=== PATIENT | male | born 2000 | race African-American/Black ===

== ENCOUNTER 2020-09-21 05:12 | Emergency (ER) | payer SELFPAY ==
[2020-09-21] MEDS ORDERED: Ondansetron 4 MG/2 ML SDV IVPUSH ONE (05:35)
[2020-09-21] MEDS ORDERED: Dextrose 5%-0.9% NaCl 1,000 ML IV STA (05:37)
[2020-09-21] MEDS ORDERED: diphenhydrAMINE 50 MG/ML SDV IVPUSH ONE (05:53)
[2020-09-21] MEDS ORDERED: Haloperidol Lactate 5 MG/ML SDV IM ONE (05:54)
[2020-09-21 06:14] LABS: BLOOD UREA NITROGEN,BUN 20 mg/dL (7.0-18.0); CARBON DIOXIDE,CO2 21.4 mmol/L (21.0-32.0); CHLORIDE,CL 102 mmol/L (98-107); GLUCOSE RANDOM 143 mg/dL (74-106); POTASSIUM,K 4.5 mmol/L (3.5-5.1); SODIUM,NA 135 mmol/L (136-148)
--- NOTE | 2020-09-21 06:23 | EDM.PDOC ---
<Fuentes Neal - Last Filed: 09/21/20 06:57> ED HPI GENERAL MEDICAL PROBLEM - General Chief Complaint: Gastrointestinal Problem Stated Complaint: VOMITING Time Seen by Provider: 09/21/20 05:30 - History of Present Illness INITIAL COMMENTS - FREE TEXT/NARRATIVE: CHIEF COMPLAINT(S): Vomiting HISTORY OF PRESENT ILLNESS: This is a 20-year-old man with a past medical history of daily marijuana use otherwise no past medical history who comes to the emergency department with a chief complaint of vomiting. The patient states that for the last 1 day he has been experiencing nonbloody nonbilious vomiting with minimal abdominal pain. He denies any diarrhea, fever, chills, chest pain, shortness of breath. He denies any diarrhea, melena, or hematochezia. He states that he noticed that when he was in a hot shower that it improved his symptoms. He has not yet tried anything for the nausea. He states is not unable to tolerate any fluids by mouth. REVIEW OF SYSTEMS: Constitutional: Denies fever, chills. Eyes: Denies eye pain Ears, Nose, Mouth, & Throat: Denies earache Cardiovascular: Denies chest pain Respiratory: Denies shortness of breath Gastrointestinal: Positive for vomiting. Denies abdominal pain, diarrhea, hematochezia, hematemesis, bilious emesis Genitourinary: Denies hematuria Skin:Denies a rash MSK: Denies joint pain Neurological: Denies blurred vision Psychiatric: Denies depression PAST MEDICAL HISTORY: As per history of present illness and as reviewed below otherwise noncontributory. SURGICAL HISTORY: As per history of present illness and as reviewed below otherw ise noncontributory. SOCIAL HISTORY: As per history of present illness and as reviewed below otherwise noncontributory. FAMILY HISTORY: As per history of present illness and as reviewed below otherw ise noncontributory. EXAMINATION OF ORGAN SYSTEMS/BODY AREAS: Constitutional: Blood pressure is 129/66, heart rate 80, respiratory 16 with an oxygen saturation 97% on room air. Temperature 35.9 General: Overall well-appearing man who is in no acute distress Psychiatric: Appropriate mood and affect. Eyes: No scleral icterus or conjunctival erythema conjunctival injection bilaterally. ENMT: Dry mucous membranes/[place]. No pharyngeal erythema Cardiovascular: Regular, rate, and rhythm. No gallops, murmurs, or rubs. Bilateral upper extremity pulses symmetric and intact. No peripheral edema. No JVD. Respiratory: Lungs clear to auscultation bilaterally. No wheezes, rales, or rhonchi. Gastrointestinal: Soft, mild tenderness in the epigastric region. Nondistended. No rebound or guarding. Normoactive bowel sounds Genitourinary: No suprapubic tenderness Musculoskeletal: Normal range of motion. Skin: No lesions or abrasions. Neurological: Alert, GCS 15 MEDICAL DECISION MAKING AND COURSE IN THE ED WITH INTERPRETATION/REVIEW OF DIAGNOSTIC STUDIES: This is a 20-year-old man and with a past medical history of marijuana use disorder who comes to the emergency department with vomiting with minimal epigastric tenderness who has normal vital signs. At this time I do believe this is likely secondary to his marijuana use however given the epigastric tenderness we will obtain screening laboratory analysis. We will provide the patient with Haldol, Benadryl, and Zofran. This is for pain and nausea control. Differential includes pancreatitis. I do not believe any imaging is indicated at this time. We will reevaluate the patient. Laboratory: CBC reveals a mild leukocytosis of 12.79 with neutrophilic predominance with no left shift. Otherwise unremarkable. CMP reveals hyponatremia at 135, mildly elevated BUN at 20, hyperglycemia at 143 otherwise unremarkable. Qpskh-rb-tgus glucose was 125. On reevaluation, had just finished IV fluids at sign out and had not yet tried to drink fluids. DISPOSITION: The patient was signed out to Dr. Mercado pending reevaluation for PO toleration CONDITION: Fair PROCEDURES: None FINAL IMPRESSION(S)/DIAGNOSES: 1. Acute hyperemesis likely secondary to marijuana use Fuentes Neal M.D. - Related Data Allergies Allergy/AdvReac Type Severity Reaction Status Date / Time No Known Allergies Allergy Verified 09/21/20 05:31 Home Meds: Home Meds . [No Known Home Meds] 09/21/20 [History] Past Medical History - Past Health History Medical/Surgical History: Denies Medical/Surgical History Social & Family History - Recreational Drug Use Recreational Drug Use: No ED ROS GENERAL - Review of Systems Review Of Systems: See Below ED EXAM, GENERAL - Physical Exam Exam: See Below Departure - Departure Disposition: Home, Self-Care 01 Condition: Fair Clinical Impression: Cannabis hyperemesis syndrome concurrent with and due to cannabis abuse - Discharge Information *PRESCRIPTION DRUG MONITORING PROGRAM REVIEWED*: No *COPY OF PRESCRIPTION DRUG MONITORING REPORT IN PATIENT CHIKA: No Instructions: Cyclic Vomiting Syndrome, Adult, Cannabinoid Hyperemesis Syndrome Referrals: PCP,None [Primary Care Provider] - Forms: ED Department Discharge Additional Instructions: You evaluate today on emergent basis. At this time I do believe your vomiting is secondary to marijuana use. I do recommend you decrease use of marijuana. Please continue to maintain adequate fluid hydration. If you have any new or worsening symptoms please return to the emergency department. Otherwise follow- up with your primary care physician within 1 week [facility] [address] [place] [id number] [id number] The patient is informed of any results of their evaluation and diagnostic workup and all questions are answered. They are given discharge instructions and return precautions. The patient is stable for discharge. The patient states they understand and agree with the plan and that they will return if their symptoms get worse or if they have any new concerns. The following information is given to patients seen in the emergency department who are being discharged to home. This information is to outline your options for follow-up care. We provide all patients seen in our emergency department with a follow-up referral. The need for follow-up, as well as the timing and circumstances, are variable depending upon the specifics of your emergency department visit. If you don't have a primary care physician on staff, we will provide you with a referral. We always advise you to contact your personal physician following an emergency department visit to inform them of the circumstance of the visit and for follow-up with them and/or the need for any referrals to a consulting specialist. The emergency department will also refer you to a specialist when appropriate. This referral assures that you have the opportunity for follow-up care with a specialist. All of these measure are taken in an effort to provide you with optimal care, which includes your follow-up. Under all circumstances we always encourage you to contact your private physician who remains a resource for coordinating your care. When calling for follow-up care, please make the office aware that this follow-up is from your recent emergency room visit. If for any reason you are refused follow-up, please contact the [facility] Emergency Department at and asked to speak to the emergency department charge nurse. Sepsis Event Note (ED) - Evaluation Sepsis Screening Result: No Definite Risk <Cesar Mercado - Last Filed: 09/21/20 07:31> Course - Vital Signs Text/Narrative:: The patient was signed out to me by my partner at 7:00. This was the end of his shift. The patient is tolerating p.o. but only scant amounts at this time. It was felt that the patient needs to tolerate p.o. fluids better before discharge and there might be additional medications warranted. 7:30 AM the patient is tolerating p.o. and has a girlfriend is going to take him home to rest it off. Instruction was understood. Patient is discharged in satisfactory condition. Last Recorded V/S: Last Vital Signs Temp 35.9 C L 09/21/20 05:28 Pulse 80 09/21/20 05:28 Resp 16 09/21/20 05:28 BP 129/66 09/21/20 05:28 Pulse Ox 97 09/21/20 05:28 - Orders/Labs/Meds Orders: Active Orders 24 hr Category Date Time Status Blood Glucose Check, Bedside [RC] ONETIME Care 09/21/20 05:19 Active Labs: Laboratory Tests 09/21/20 09/21/20 09/21/20 Range/Units 05:25 05:35 05:35 WBC 12.79 H (4.0-11.0) K/uL RBC 5.47 (4.50-5.90) M/uL Hgb 16.8 (13.0-17.0) g/dL Hct 48.8 (38.0-50.0) % MCV 89.2 (80.0-98.0) fL MCH 30.7 (27.0-32.0) pg MCHC 34.4 (31.0-37.0) g/dL RDW Std Deviation 39.9 (28.0-62.0) fl RDW Coeff of Edgard 12 (11.0-15.0) % Plt Count 281 (150-400) K/uL MPV 10.10 (7.40-12.00) fL Neut % (Auto) 86.8 H (48.0-80.0) % Lymph % (Auto) 7.3 L (16.0-40.0) % [place] % (Auto) 5.6 (0.0-15.0) % Eos % (Auto) 0.2 (0.0-7.0) % Baso % (Auto) 0.1 (0.0-1.5) % Neut # (Auto) 11.1 H (1.4-5.7) K/uL Lymph # (Auto) 0.9 (0.6-2.4) K/uL [place] # (Auto) 0.7 (0.0-0.8) K/uL Eos # (Auto) 0.0 (0.0-0.7) K/uL Baso # (Auto) 0.0 (0.0-0.1) K/uL Nucleated RBC % 0.0 /100WBC Nucleated RBCs # 0 K/uL Sodium 135 L (136-148) mmol/L Potassium 4.5 (3.5-5.1) mmol/L Chloride 102 (98-107) mmol/L Carbon Dioxide 21.4 (21.0-32.0) mmol/L BUN 20 H (7.0-18.0) mg/dL Creatinine 1.0 (0.8-1.3) mg/dL Est Cr Clr Drug Dosing 102.50 mL/min Estimated GFR (MDRD) > 60.0 ml/min Glucose 143 H (74-106) mg/dL POC Glucose 125 H (60-110) mg/dL Calcium 9.0 (8.5-10.1) mg/dL Total Bilirubin 1.0 (0.2-1.0) mg/dL AST 27 (15-37) IU/L ALT 30 (14-63) IU/L Alkaline Phosphatase 103 (46-116) U/L Total Protein 8.5 H (6.4-8.2) g/dL Albumin 4.4 (3.4-5.0) g/dL Globulin 4.1 H (2.6-4.0) g/dL Albumin/Globulin Ratio 1.1 (0.9-1.6) Lipase (73-393) U/L 09/21/20 Range/Units 05:35 WBC (4.0-11.0) K/uL RBC (4.50-5.90) M/uL Hgb (13.0-17.0) g/dL Hct (38.0-50.0) % MCV (80.0-98.0) fL MCH (27.0-32.0) pg MCHC (31.0-37.0) g/dL RDW Std Deviation (28.0-62.0) fl RDW Coeff of Edgard (11.0-15.0) % Plt Count (150-400) K/uL MPV (7.40-12.00) fL Neut % (Auto) (48.0-80.0) % Lymph % (Auto) (16.0-40.0) % [place] % (Auto) (0.0-15.0) % Eos % (Auto) (0.0-7.0) % Baso % (Auto) (0.0-1.5) % Neut # (Auto) (1.4-5.7) K/uL Lymph # (Auto) (0.6-2.4) K/uL [place] # (Auto) (0.0-0.8) K/uL Eos # (Auto) (0.0-0.7) K/uL Baso # (Auto) (0.0-0.1) K/uL Nucleated RBC % /100WBC Nucleated RBCs # K/uL Sodium (136-148) mmol/L Potassium (3.5-5.1) mmol/L Chloride (98-107) mmol/L Carbon Dioxide (21.0-32.0) mmol/L BUN (7.0-18.0) mg/dL Creatinine (0.8-1.3) mg/dL Est Cr Clr Drug Dosing mL/min Estimated GFR (MDRD) ml/min Glucose (74-106) mg/dL POC Glucose (60-110) mg/dL Calcium (8.5-10.1) mg/dL Total Bilirubin (0.2-1.0) mg/dL AST (15-37) IU/L ALT (14-63) IU/L Alkaline Phosphatase (46-116) U/L Total Protein (6.4-8.2) g/dL Albumin (3.4-5.0) g/dL Globulin (2.6-4.0) g/dL Albumin/Globulin Ratio (0.9-1.6) Lipase 41 L (73-393) U/L Departure - Departure Time of Disposition: 07:30 Condition: Good Sepsis Event Note (ED) - Focused Exam Vital Signs: Vital Signs Temp Pulse Resp BP Pulse Ox 09/21/20 05:28 35.9 C L 80 16 129/66 97
== END 2020-09-21 07:40 | disposition home or self-care (01) ==
LOC: MW.ED 05:12
DX: R11.10 Vomiting, unspecified (principal); F12.10 Cannabis abuse, uncomplicated
CPT/HCPCS: 36415; 80053; 82962; 83690; 85025; 96374; 96375; 99284; J1200; J1630; J2405; J7042; 99283